=== PATIENT | male | born 1950 | race Caucasian/White ===

== ENCOUNTER → 2019-04-11 12:59 | Outpatient (CLI) | payer MEDICARE, SELFPAY ==
--- NOTE | ~2019-04-11 | XR_ITS ---
EXAMINATION: XR soft tissue neck DATE: 04/11/2019 13:42 INDICATION: Localized swelling, mass, and lump of the neck. TECHNIQUE: 2 views of the neck soft tissues were obtained. COMPARISON: None. FINDINGS: The adenoids, palatine tonsils, prevertebral soft tissues, epiglottis, and airway are torri l. There is no radiopaque foreign body. IMPRESSION: 1. Normal neck soft tissues. Reviewed, dictated and finalized at location A. AGE RECEIPT POSTER
== END ==
PROVIDERS: PCP Family Medicine; Visit Provider Family Medicine
DX: R22.1 Localized swelling, mass and lump, neck (principal); F17.290 Nicotine dependence, other tobacco product, uncomplicated
CPT/HCPCS: 70360

== ENCOUNTER → 2019-04-12 13:52 | Outpatient (CLI) | payer MEDICARE, SELFPAY ==
--- NOTE | ~2019-04-12 | US_ITS ---
EXAMINATION: US soft tissue head and neck EXAM DATE: 04/12/2019 14:15 INDICATION: Lump for one week. Now pain. TECHNIQUE: Multiple grayscale and Doppler images of the left submandibular region were obtained (by a technologist who performed the scan) and subsequently reviewed. There is no prior study for compari son. FINDINGS: At patient's left-sided submandibular palpable abnormality is a hypoechoic lobular masslike region me asuring 1.8 x 1.0 x 1.3 cm, which is nonspecific. Could be an enlarged lymph node. There are several small lymph nodes with expected fatty richard adjacent to this. Consider CT neck with contrast. IMPRESSION: 1. Submandibular mass, could be mildly enlarged lymph node; consider CT neck with contrast. Reviewed, dictated and finalized at location B. CTOR VOICE IMPRESSION: 1. Submandibular mass, could be mildly enlarged lymph node; consider CT neck w ith contrast.
== END ==
PROVIDERS: PCP Family Medicine; Visit Provider Family Medicine
DX: R22.1 Localized swelling, mass and lump, neck (principal)
CPT/HCPCS: 76536

== ENCOUNTER → 2019-04-18 10:09 | Outpatient (CLI) | payer MEDICARE, SELFPAY ==
--- NOTE | ~2019-04-18 | CT_ITS ---
EXAMINATION: CT soft tissue neck w con DATE: 04/18/2019 10:46 INDICATION: Neck mass. TECHNIQUE: Computed tomography (CT) of the neck was performed with 75 mL Omnipaque-350 intravenous co ntrast. Automated exposure control and iterative reconstruction technique were employed. The dose-timbo gth product was 429.76 mGy-cm. COMPARISON: Ultrasound 04/12/2019, chest CT 01/14/15 FINDINGS: There is mild emphysema. A calcified left lung nodule and calcified mediastinal lymph node are consistent with old granulomatous disease. There are nodules in the thyroid measuring up to 15 mm . There is a 1.4 x 0.9 cm mass anterior to the hyoid bone to the left of midline measuring soft tissu e attenuation, less than normal thyroid attenuation. There are no pathologically enlarged lymph nodes . There is moderate cervical spondylosis. IMPRESSION: 1. 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 2. Thyroid nodules. Consider thyroid ultrasound for risk stratification. Reviewed, dictated and finalized at location A. HANDISE FLOW TEAM LEADER
[2019-04-18 10:35] LABS: Blood Urea Nitrogen 17 mg/dL (8-26); Estimated Glomerular Filt Rate > 60
== END ==
PROVIDERS: PCP Family Medicine; Visit Provider Family Medicine
DX: R22.1 Localized swelling, mass and lump, neck (principal); E04.2 Nontoxic multinodular goiter
CPT/HCPCS: 70491; Q9967

== ENCOUNTER → 2019-05-01 14:20 | Outpatient (CLI) | payer MEDICARE, SELFPAY ==
--- NOTE | ~2019-05-01 | US_ITS ---
EXAMINATION: US thyroid EXAM DATE: 05/01/2019 15:01 INDICATION: Thyroid nodules. TECHNIQUE: Multiple grayscale and Doppler images of the thyroid were obtained (by a technologist who performed the scan) and subsequently reviewed. Individual nodules may be reported using TI-RADS syst em as designated by the 2017 ACR White Paper TI-RADS committee. Comparison is made to prior CT examin ation from 04/12/2019. FINDINGS: The right there are lobe measures 4.7 x 2.1 x 1.8 cm, the left measuring 4.3 x 1.6 x 1.5 cm. There is a nodule in the lower pole of the right thyroid lobe measuring 2.3 x 1.8 x 1.7 centimeters, predominantly solid (2 points), hypoechoic (2 points), wider than tall, smooth margin, without echog enic foci, category TR4 for this nodule. Correlation was made with CT neck from 04/12/2019, CT chest f rom 10/12/2016. Nodule is identified on the contrast-enhanced neck CT but difficult to be certain whet her or not this was present on the noncontrast chest CT. IMPRESSION: 1. Right thyroid lobe nodule large enough to consider ultrasound-guided biopsy. Reviewed, dictated and finalized at location A. LING MACHINE OPERATOR IMPRESSION: 1. Right thyroid lobe nodule large enough to consider ultrasound-guided biopsy .
== END ==
PROVIDERS: PCP Family Medicine; Visit Provider Family Medicine
DX: E04.1 Nontoxic single thyroid nodule (principal)
CPT/HCPCS: 76536

== ENCOUNTER 2019-05-09 12:56 | Outpatient (CLI) | payer MEDICARE, SELFPAY ==
--- NOTE | ~2019-05-09 | US_ITS ---
EXAMINATION: US FNA w image guidance DATE: 05/09/2019 14:12 INDICATION: Right thyroid nodule. TECHNIQUE: The procedure and its benefits, risks, and benefits were discussed with the patient. Risks specifical ly discussed included bleeding. The patient verbalized understanding of the risks and agreed to proce ed. The neck was prepped and draped in the usual sterile manner. 1% lidocaine was used for local ane sthesia. 5 passes were made with a 25G needle into the lesion. Appropriate needle location was docu mented with continuous sonographic guidance. There were no immediate complications. The patient unde rstood to call the ordering physician for results after a week and a half and verbalized that underst anding. FINDINGS: Grayscale ultrasound images demonstrate needles advanced into a 2.3 cm nodule in right thyroid lobe f or biopsy. IMPRESSION: 1. Ultrasound-guided fine needle aspiration of a right thyroid nodule. Reviewed, dictated and finalized at location A.
== END 2019-05-09 12:57 | disposition home or self-care (01) ==
LOC: ANHIMG 13:00
PROVIDERS: PCP Family Medicine; Visit Provider Family Medicine
DX: E04.1 Nontoxic single thyroid nodule (principal)
CPT/HCPCS: 10005; 88108; 88173; 88305

== ENCOUNTER → 2020-01-06 13:07 | Outpatient (CLI) | payer MEDICARE, SELFPAY ==
--- NOTE | ~2020-01-06 | CT_ITS ---
EXAMINATION:CT lung screening DATE: 01/06/2020 13:36 INDICATION: Personal history of tobacco dependence. Current smoker with 30 pack year history. TECHNIQUE: Computed tomography (CT) of the chest was performed without intravenous contrast. Automate d exposure control and iterative reconstruction technique were employed. The dose-length product (DLP ) was 217.31 mGy-cm. COMPARISON: Chest CT 10/12/2016 FINDINGS: There is mild emphysema. There is mild scarring in paraspinal right lower lobe. Calcified l eft lung nodules and calcified left hilar and mediastinal lymph nodes are consistent with old granulo matous disease. There are two 6 mm nodules at the minor fissure without change. No pleural effusion. The heart size is normal. There are coronary artery calcifications. No pericardial effusion. There is mild thoracic spondylosis. IMPRESSION: 1. Lung-RADS category 2: Benign appearance or behavior. Continue annual screening with noncontrast lo w-dose chest CT in 12 months. Reviewed, dictated and finalized at location B. INE OPERATORS IMPRESSION: 1. Lung-RADS category 2: Benign appearance or behavior. Continue annual screeni ng with noncontrast low-dose chest CT in 12 months.
== END ==
PROVIDERS: PCP Family Medicine; Visit Provider Physician Assistant
DX: Z12.2 Encounter for screening for malignant neoplasm of respiratory organs (principal); Z87.891 Personal history of nicotine dependence
CPT/HCPCS: G0297

== ENCOUNTER 2020-08-07 13:10 | Emergency (ER) | payer MEDICARE, SELFPAY ==
--- NOTE | ~2020-08-07 | XR_ITS ---
XR shoulder RT min 2V, XR humerus RT 08/07/2020 13:33 Indication: Right shoulder and arm pain after injury Procedure: 4 views right shoulder and 2 views right humerus Comparison: No prior studies for comparison. Findings: There are mild-moderate degenerative changes of the acromioclavicular and glenohumeral join ts. No fracture or traumatic malalignment. Surrounding osseous structures and soft tissues are unrema rkable. No focal soft tissue abnormality. No foreign bodies. Impression: 1: No acute fracture. 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 Reviewed, dictated and finalized at location B. Impression: 1: No acute fracture. 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 Impression: 1: No acute fracture. 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
[2020-08-07 13:17] VITALS: BP 145/78; PULSE 73; RESP 16; TEMP 36.6; O2SAT 100
--- NOTE | 2020-08-07 13:20 | ED.UPPEXIN ---
HPI - Extremity Injury (Upper) General Chief Complaint: Extremity Injury, Upper Stated Complaint: R ARM PAIN/SWELLING History of Present Illness HPI narrative: This is a 69-year-old male that attempted to lift up a lawnmower yesterday states that when he was lifted up and have the engine and and he felt the severe pain that started shooting down his right arm. Patient states last night he was unable to sleep so that woke him up but patient denies taking anything for symptoms Related Data Allergies Allergy/AdvReac Type Severity Reaction Status Date / Time amoxicillin Allergy Unknown Nausea Verified 04/23/20 13:54 Review of Systems Review of Systems: Narrative: CONSTITUTIONAL: Denies fever, chills, or sweats. EYES: Denies visual changes, redness, or discharge. ENT: Denies rhinorrhea, congestion, sore throat, or otalgia. CARDIOVASCULAR:Denies chest pain, palpitations, or edema. RESPIRATORY: Denies cough or dyspnea. GASTROINTESTINAL: Denies abdominal pain, nausea, vomiting, or diarrhea. GENITOURINARY: Denies dysuria or hematuria. SKIN:[Denies rash or itching. MUSCULOSKELETAL:Denies back pain, reports right arm joint pain, or myalgia. NEUROLOGIC: Denies headache, numbness, or weakness. PSYCHIATRIC:Denies anxiety or depression [facility] Past Medical History Medical History Hepatitis C antibody test negative (09/13/16) Surgical History Surgical History H/O adenoidectomy History of tonsillectomy Family History Family History Mother Hypertension Family history of elevated blood lipids Cerebrovascular accident Father Family history of Parkinson's disease Malignant neoplasm of prostate, Onset Age: 76 Social History Social History (Updated 04/23/20 @ 13:55 by Pham Grier CMA) Smoking packs per day: 1 Smoking cigarettes per day: 20.0 Smoking status: Current every day smoker Second hand tobacco smoke exposure: No Alcohol intake: current Drinks per week: 4 Substance use: never Substance use type: does not use Gender identity (if verbalized by the patient): Male Comments At time as signature, I have reviewed and agree with nursing past medical, social, surgical and family history. Please see nursing chart for further information. There is no relevant family history pertinent to the presenting complaint. Exam Narrative: Exam Narrative: GENERAL:Well-appearing, well-nourished, and in no acute distress. HEAD:Normocephalic, atraumatic. EYES: PERRLA and EOMI. ENT: Nares clear, no rhinorrhea or epistaxis. Mucous membranes moist. NECK: Supple. CHEST: Clear to auscultation. No respiratory distress. HEART: Regular rate and rhythm. No murmur heard. Normal peripheral pulses. ABDOMEN: Soft, nontender, nondistended, normal active bowel sounds. EXTREMITIES: Decreased range of motion pain with palpitation inability to lift more than 90 degrees due to pain rotation causes pain. No edema. No pain when held in place SKIN: Warm, dry, no rash. NEURO: No focal deficits. Alert and oriented x3. Course Vital Signs Vital signs: Vital Signs Temperature 97.8 F 08/07/20 13:17 Pulse Rate 73 08/07/20 13:17 Respiratory Rate 16 08/07/20 13:17 Blood Pressure 145/78 H 08/07/20 13:17 Pulse Oximetry 100 08/07/20 13:17 Temperature 97.8 F 08/07/20 13:17 Pulse Rate 73 08/07/20 13:17 Respiratory Rate 16 08/07/20 13:17 Blood Pressure 145/78 H 08/07/20 13:17 Pulse Oximetry 100 08/07/20 13:17 MDM - Extremity Injury (Upper) Differential Diagnosis Differential diagnosis: Likely dislocation of shoulder, fracture of humerus and fracture of clavicle Lab Data Attestation: I reviewed the patient's lab results. 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 Noted and educated shannon
== END 2020-08-07 14:28 | disposition home or self-care (01) ==
PROVIDERS: Emergency Provider Nurse Practitioner Family; PCP Family Medicine
DX: M19.011 Primary osteoarthritis, right shoulder (principal); M62.838 Other muscle spasm; S46.911A Strain of unspecified muscle, fascia and tendon at shoulder and upper arm level, right arm, initial encounter; X50.0XXA Overexertion from strenuous movement or load, initial encounter; F17.210 Nicotine dependence, cigarettes, uncomplicated
CPT/HCPCS: 73030; 73060; 99213; A4565; G0463

== ENCOUNTER → 2021-05-24 14:21 | Outpatient (CLI) | payer MEDICARE, SELFPAY ==
--- NOTE | ~2021-05-24 | CT_ITS ---
EXAMINATION:CT lung screening DATE: 05/24/2021 14:40 INDICATION: Personal history of tobacco dependence. Current smoker with 30 pack year history. TECHNIQUE: Computed tomography (CT) of the chest was performed without intravenous contrast. Automate d exposure control and iterative reconstruction technique were employed. The dose-length product (DLP ) was 137.29 mGy-cm. COMPARISON: Chest CT 01/06/2020 FINDINGS: There is mild emphysema. Calcified left lung nodules and calcified left hilar and mediastin al lymph nodes are consistent with old granulomatous disease. There is stable mild scarring at the mat ng apices. Again seen are 2 nodules at the minor fissure with the larger measuring 6 mm. No pleural e ffusion. The heart size is normal. There are coronary artery calcifications. There are calcifications of aortic valve. No pericardial effusion. There is mild thoracic spondylosis. IMPRESSION: 1. Lung-RADS category 2: Benign appearance or behavior. Continue annual screening with noncontrast lo w-dose chest CT in 12 months. Reviewed, dictated and finalized at location A. IMPRESSION: 1. Lung-RADS category 2: Benign appearance or behavior. Continue annual screeni with noncontrast low-dose chest CT in 12 months.
== END ==
PROVIDERS: PCP Physician Assistant; Visit Provider Physician Assistant
DX: Z12.2 Encounter for screening for malignant neoplasm of respiratory organs (principal); F17.210 Nicotine dependence, cigarettes, uncomplicated
CPT/HCPCS: 71271

== ENCOUNTER 2023-08-29 15:02 | Outpatient (CLI) | payer MEDICARE, SELFPAY ==
--- NOTE | ~2023-08-29 | CT_ITS ---
EXAMINATION: CT lung screening DATE: 08/29/2023 15:27 INDICATION: Z87.891 - Personal history of nicotine dependence TECHNIQUE: Computed tomography (CT) of the chest was performed without intravenous contrast. Addition al 3D reconstructions utilizing coronal maximum intensity projection (MIP) were performed. Automated exposure control and iterative reconstruction technique were employed. The dose-length product was 16 6.50 mGy-cm. COMPARISON: None FINDINGS: Mild emphysema. There are few small bilateral calcified pulmonary nodules which along with calcified left hilar and mediastinal lymph nodes and a few splenic calcific lesions all consistent with old gra nulomatous disease. No interval change in a couple 5-6 mm triangular intrafissural lymph nodes along the right minor fissure. Mild subpleural atelectasis/scarring at the posterior medial right lower lob e adjacent to several prominent thoracic endplate osteophytes consistent with bridging osteophytes at multiple levels consistent with diffuse idiopathic skeletal hyperostosis (DISH). No pneumonia, pulm onary edema or pleural effusion. Heart size is normal. Small amount of atherosclerotic coronary arter y calcification. No pericardial effusion. Thoracic aorta is normal in caliber. No pathologically enla rged thoracic lymphadenopathy. IMPRESSION: 1. Lung-RADS category 2: Benign appearance or behavior. Continue annual screening with noncontrast lo w-dose chest CT in 12 months. Reviewed, dictated and finalized at location B. IMPRESSION: 1. Lung-RADS category 2: Benign appearance or behavior. Continue annual screeni ng with noncontrast low-dose chest CT in 12 months.
== END 2023-08-29 15:03 | disposition home or self-care (01) ==
PROVIDERS: PCP Family Medicine; Visit Provider Nurse Practitioner
DX: Z12.2 Encounter for screening for malignant neoplasm of respiratory organs (principal); Z87.891 Personal history of nicotine dependence
CPT/HCPCS: 71271

== ENCOUNTER 2024-04-17 13:48 | Outpatient (CLI) | payer MEDICARE, SELFPAY ==
--- NOTE | ~2024-04-17 | US_ITS ---
EXAMINATION: US soft tissue head and neck DATE: 04/17/2024 13:59 INDICATION: Left neck lump. TECHNIQUE: Multiple grayscale and Doppler ultrasound images of the head and neck were obtained. COMPARISON: Neck CT 04/18/2019 FINDINGS: There is a normal left submandibular lymph node in the patient's area of concern. IMPRESSION: 1. No abnormal mass or lymphadenopathy in the patient's area of concern. Reviewed, dictated and finalized at location A. ES DIRECTOR
== END 2024-04-17 13:49 | disposition home or self-care (01) ==
LOC: GOSHIMG 13:49
PROVIDERS: PCP Nurse Practitioner; Visit Provider Nurse Practitioner
DX: R22.1 Localized swelling, mass and lump, neck (principal)
CPT/HCPCS: 76536

== ENCOUNTER 2024-05-21 00:46 | Day surgery (SDC) | payer MEDICARE, SELFPAY ==
[2024-05-13 10:52] VITALS: BMI 26.9
[2024-05-21 08:14] VITALS: BP 143/69; PULSE 73; RESP 20; TEMP 35.7; O2SAT 99; BMI 26.4
[2024-05-21] MEDS: LACTATED RINGERS 1,000 ML 150 ML IV CONT (08:23)
--- NOTE | 2024-05-21 08:55 | WPDANESEPPF ---
Anes - Initial Pre Proc Eval Procedure: Operation Date: 05/21/24 09:30 Proposed Procedures p Screening Colonoscopy - Glenn Salazar MD Date/Time: 05/21/24 08:55 Surgeon: Glenn Salazar MD Pre Op Diagnosis: Screening Patient Data Age: 73 Gender: M Height: 1.83 m Weight: 88.6 kg Last Vital Signs Temp 35.7 C L 05/21/24 08:14 Pulse 73 05/21/24 08:14 Resp 20 05/21/24 08:14 BP 143/69 H 05/21/24 08:14 Pulse Ox 99 05/21/24 08:14 O2 Del Method Room Air 05/21/24 08:14 Allergies Allergy/AdvReac Type Severity Reaction Status Date / Time amoxicillin Allergy Unknown Nausea Verified 05/21/24 08:13 Home Medications ?Medication ?Instructions ?Recorded ?Confirmed ?Type sildenafil 100 mg tablet 100 mg PO DAILY PRN sexual 04/17/23 05/13/24 Rx activity #20 tabs hydrochlorothiazide 25 mg tablet 25 mg PO DAILY #90 tabs 12/04/23 05/21/24 Rx lisinopril 40 mg tablet 40 mg PO DAILY #90 tabs 12/04/23 05/21/24 Rx atorvastatin 10 mg tablet See Rx Instructions .Route 12/11/23 05/21/24 Rx .COMPLEX #90 tabs omeprazole 20 mg capsule,delayed See Rx Instructions .Route 12/26/23 05/21/24 Rx release .COMPLEX #90 caps amlodipine 5 mg tablet 5 mg PO DAILY #90 tabs 02/19/24 05/21/24 Rx metoprolol succinate 50 mg See Rx Instructions .Route 03/11/24 05/21/24 Rx tablet,extended release 24 hr .COMPLEX #90 tabs escitalopram oxalate 20 mg tablet See Rx Instructions .Route 04/16/24 05/21/24 Rx .COMPLEX #90 tabs cyclobenzaprine 10 mg tablet 10 mg PO DAILY PRN muscle spasm 04/17/24 05/21/24 Rx #90 tabs diclofenac potassium 50 mg tablet See Rx Instructions .Route 05/13/24 05/21/24 Rx .COMPLEX #180 tabs Patient hx anesthesia problems: none Family hx anesthesia problems: none Results Review: All pre-operative results and documents have been reviewed as part of the pre-operative evaluation. [facility] Past Medical History Medical History (Updated 05/21/24 @ 08:56 by Natanael Carlos MD) Mixed hyperlipidemia Type 2 diabetes mellitus Hepatitis C antibody test negative (09/13/16) Surgical History Surgical History History of tonsillectomy H/O adenoidectomy Family History Family History Mother Hypertension Family history of elevated blood lipids Cerebrovascular accident Father Family history of Parkinson's disease Malignant neoplasm of prostate, Onset Age: 76 Social History Social History Smoking packs per day: 1 Smoking cigarettes per day: 20.0 Smoking status: Current every day smoker Tobacco type: cigarettes Second hand tobacco smoke exposure: No Alcohol intake: current Drinks per week: 4 Alcohol use details: 2 glasses of wine or 3 beers nightly Substance use: current Substance use type: marijuana Lack of Transportation: No Lack of Food: Never True Current Housing: I Have Housing Concerned About Future Housing: No Difficulty Paying Gas/Electric Bills: No Difficulty Paying for Meds: No Currently Unemployed: No Education: High School Diploma/GED Difficulty w/ Childcare or Family Care: No Living arrangements: with family Gender identity (if verbalized by the patient): Male Spiritual care concerns: No Anes - Eval Final PreProcedure Day of Procedure 05/21/24 08:55 Patient weight: overweight Heart: regular rate and rhythm Lungs: clear to auscultation Airway: Mallampati scale class II Neurological: alert and oriented Last oral intake: >/= 8 hours ASA classification: III Emergent: no Anesthetic plan: proceed Anesthesia type and monitoring: general GIVS and standard monitoring Results Review: All pre-operative results and documents have been reviewed as part of the pre-operative evaluation. Informed Consent: The patient's anesthetic plan and its attendant risks and benefits were discussed with the patient/family/POA. Questions were solicited and answers provided to the satisfaction of the patient/family/POA.
[2024-05-21 09:08] VITALS: BP 120/74; PULSE 60; RESP 14; O2SAT 99
--- NOTE | 2024-05-21 09:23 | PM.IMHP ---
H&P: HPI History of Present Illness Date/Time: 05/21/24 09:23 Chief Complaint: screening colonoscopy Narrative: This is the patient's first colonoscopy after 10 years.. There are no GI symptoms and there is no family history of colorectal cancer. Review of Systems Review of Systems: All systems reviewed & are unremarkable except as noted in HPI and below PMFSH Past Medical History Medical History (Updated 05/21/24 @ 08:56 by Natanael Carlos MD) Mixed hyperlipidemia Type 2 diabetes mellitus Hepatitis C antibody test negative (09/13/16) Surgical History Surgical History History of tonsillectomy H/O adenoidectomy Family History Family History Mother Hypertension Family history of elevated blood lipids Cerebrovascular accident Father Family history of Parkinson's disease Malignant neoplasm of prostate, Onset Age: 76 Social History Social History Smoking packs per day: 1 Smoking cigarettes per day: 20.0 Smoking status: Current every day smoker Tobacco type: cigarettes Second hand tobacco smoke exposure: No Alcohol intake: current Drinks per week: 4 Alcohol use details: 2 glasses of wine or 3 beers nightly Substance use: current Substance use type: marijuana Lack of Transportation: No Lack of Food: Never True Current Housing: I Have Housing Concerned About Future Housing: No Difficulty Paying Gas/Electric Bills: No Difficulty Paying for Meds: No Currently Unemployed: No Education: High School Diploma/GED Difficulty w/ Childcare or Family Care: No Living arrangements: with family Gender identity (if verbalized by the patient): Male Spiritual care concerns: No Meds Home Medications and Allergies Home Medications ?Medication ?Instructions ?Recorded ?Confirmed ?Type sildenafil 100 mg tablet 100 mg PO DAILY PRN sexual 04/17/23 05/13/24 Rx activity #20 tabs hydrochlorothiazide 25 mg tablet 25 mg PO DAILY #90 tabs 12/04/23 05/21/24 Rx lisinopril 40 mg tablet 40 mg PO DAILY #90 tabs 12/04/23 05/21/24 Rx atorvastatin 10 mg tablet See Rx Instructions .Route 12/11/23 05/21/24 Rx .COMPLEX #90 tabs omeprazole 20 mg capsule,delayed See Rx Instructions .Route 12/26/23 05/21/24 Rx release .COMPLEX #90 caps amlodipine 5 mg tablet 5 mg PO DAILY #90 tabs 02/19/24 05/21/24 Rx metoprolol succinate 50 mg See Rx Instructions .Route 03/11/24 05/21/24 Rx tablet,extended release 24 hr .COMPLEX #90 tabs escitalopram oxalate 20 mg tablet See Rx Instructions .Route 04/16/24 05/21/24 Rx .COMPLEX #90 tabs cyclobenzaprine 10 mg tablet 10 mg PO DAILY PRN muscle spasm 04/17/24 05/21/24 Rx #90 tabs diclofenac potassium 50 mg tablet See Rx Instructions .Route 05/13/24 05/21/24 Rx .COMPLEX #180 tabs Allergies Allergy/AdvReac Type Severity Reaction Status Date / Time amoxicillin Allergy Unknown Nausea Verified 05/21/24 08:13 Vital Signs Vital Signs - 24 hr 05/21/24 08:14 Temperature 96.2 F L Pulse Rate 73 Respiratory Rate 20 Blood Pressure 143/69 H Pulse Oximetry 99 Oxygen Delivery Room Air Exam Const: General: cooperative and healthy appearing Resp: Effort & Inspection: normal respiratory effort and able to speak in complete sentences Auscultation: clear to auscultation bilaterally Cardio: Rate: regular rate Rhythm: regular rhythm GI: Inspection: normal to inspection GI Palp: No No hepatosplenomegaly present Auscultation: normal bowel sounds Rectal Exam: deferred Skin: General skin exam: normal color Psych: Appearance: grossly normal Mental Status: mental status grossly normal Assessment and Plan Assessment and plan (1) Screening for colon cancer: Code(s): Z12.11 - Encounter for screening for malignant neoplasm of colon Status: Acute Assessment and Plan: The patient is deemed a good candidate for the procedure. Consent signed. Will proceed.
[2024-05-21 09:48] VITALS: BP 102/52; PULSE 55; RESP 15; O2SAT 96
[2024-05-21 09:58] VITALS: BP 92/55; PULSE 60; RESP 13; O2SAT 96
== END 2024-05-21 10:19 | disposition home or self-care (01) ==
PROVIDERS: PCP Nurse Practitioner; Referring Provider Nurse Practitioner; Visit Provider Internal Medicine Gastroenterology
PROC: 0DJD8ZZ Inspection of Lower Intestinal Tract, Via Natural or Artificial Opening Endoscopic (ICD-10-PCS; CPT 45378; principal; 2024-05-21 09:30)
DX: Z12.11 Encounter for screening for malignant neoplasm of colon (principal); E78.2 Mixed hyperlipidemia; E11.9 Type 2 diabetes mellitus without complications; F17.210 Nicotine dependence, cigarettes, uncomplicated; F12.90 Cannabis use, unspecified, uncomplicated; Z98.890 Other specified postprocedural states; Z80.42 Family history of malignant neoplasm of prostate; Z82.49 Family history of ischemic heart disease and other diseases of the circulatory system
CPT/HCPCS: G0105; J2003; J2704; J7120

== ENCOUNTER 2024-07-12 13:04 | Outpatient (CLI) | payer MEDICARE, SELFPAY ==
--- NOTE | ~2024-07-12 | US_ITS ---
EXAMINATION: US carotid duplex BI DATE: 07/12/2024 13:38 INDICATION: Dizziness and giddiness. Vertigo. TECHNIQUE: Grayscale, color Doppler, and pulsed Doppler images of the cervical carotid arteries were obtained. The degree of vessel stenosis is placed in one of the following categories: normal, <50%, 5 0-69%, >=70% but less than near-occlusion, near-occlusion, or total occlusion. Note that percent sten osis relative to normal distal artery lumen diameter is indirectly measured from velocity measurement s as described by Jorje, et al. Radiology 2003; 229:340-346. COMPARISON: None. FINDINGS: RIGHT: The right common carotid artery (CCA) peak systolic velocity (PSV) is 53 cm/s. The right internal car otid artery (ICA) PSV is 88 cm/s. The right ICA end-diastolic velocity (EDV) is 24 cm/s. The right IC A/CCA PSV ratio is 1.7. Grayscale and color Doppler images yield an estimate of <50% diameter reducti on from plaque in the ICA. The external carotid artery (ECA) PSV is 70 cm/s. There is antegrade flow in the right vertebral artery. LEFT: The left CCA PSV is 67 cm/s. The left ICA PSV is 95 cm/s. The left ICA EDV is 24 cm/s. The left ICA/C CA PSV ratio is 1.4. Grayscale and color Doppler images yield an estimate of <50% diameter reduction from plaque in the ICA. The ECA PSV is 111 cm/s. There is antegrade flow in the left vertebral artery . IMPRESSION: 1. <50% stenosis in the right internal carotid artery. 2. <50% stenosis in the left internal carotid artery. Reviewed, dictated and finalized at location A.
== END 2024-07-12 13:05 | disposition home or self-care (01) ==
PROVIDERS: PCP Family Medicine; Visit Provider Nurse Practitioner
DX: I65.23 Occlusion and stenosis of bilateral carotid arteries (principal)
CPT/HCPCS: 93880

== ENCOUNTER 2024-08-09 14:30 | Outpatient (CLI) | payer MEDICARE, SELFPAY ==
--- NOTE | ~2024-08-09 | XR_ITS ---
XR shoulder RT min 2V 08/09/2024 14:43 Indication: Right shoulder pain Procedure: 4 views right shoulder Comparison: 08/07/2020 Findings: There is moderate polyarticular osteoarthritis of the right shoulder. No fracture, subluxat ion or dislocation. No soft tissue abnormality. No foreign bodies. Impression: 1: Moderate polyarticular osteoarthritis of the right shoulder. Reviewed, dictated and finalized at location B. Impression: 1: Moderate polyarticular osteoarthritis of the right shoulder.
== END 2024-08-09 14:31 | disposition home or self-care (01) ==
LOC: MICIMG 14:31
PROVIDERS: PCP Family Medicine; Visit Provider Nurse Practitioner
DX: M19.011 Primary osteoarthritis, right shoulder (principal)
CPT/HCPCS: 73030

== ENCOUNTER 2024-10-22 08:45 | Outpatient (CLI) | payer MEDICARE, SELFPAY ==
--- NOTE | ~2024-10-22 | CT_ITS ---
EXAMINATION: CT lung screening DATE: 10/22/2024 09:14 INDICATION: Personal history of nicotine dependence TECHNIQUE: Computed tomography (CT) of the chest was performed without intravenous contrast. The dose-length product was 150.22 mGy-cm. COMPARISON: CT dated 08/29/2023 FINDINGS: No thoracic lymphadenopathy. Mild atherosclerosis of the aorta and coronary arteries. No significant pleural or pericardial effusion. Heart size normal. No significant thoracic lymphadenopathy. There are calcified granulomas of the spleen. No endobronchial lesions. Stable 5 mm fissural lymph node on the right. Calcified granulomas left upper lobe. 2 mm nodule superior segment left lower lobe, likely benign. No focal airspace consolidation. No endobronchial lesion. Mild emphysema. IMPRESSION: 1. Lung-RADS category 2: Benign appearance or behavior. Continue annual screening with noncontrast low-dose chest CT in 12 months. Reviewed, dictated and finalized at location O. IMPRESSION: 1. Lung-RADS category 2: Benign appearance or behavior. Continue annual screeni ng with noncontrast low-dose chest CT in 12 months.
== END 2024-10-22 08:46 | disposition home or self-care (01) ==
PROVIDERS: PCP Family Medicine; Visit Provider Nurse Practitioner
DX: Z12.2 Encounter for screening for malignant neoplasm of respiratory organs (principal); Z87.891 Personal history of nicotine dependence
CPT/HCPCS: 71271

== ENCOUNTER 2024-12-27 14:25 | Emergency (ER) | payer MEDICARE, SELFPAY ==
[2024-12-27 14:46] VITALS: BP 142/68; PULSE 67; RESP 18; TEMP 36.9; O2SAT 100
== END 2024-12-27 14:46 | disposition left against medical advice (07) ==
PROVIDERS: PCP Family Medicine
DX: Z53.21 Procedure and treatment not carried out due to patient leaving prior to being seen by health care provider (principal)
CPT/HCPCS: 99199

== ENCOUNTER 2024-12-27 15:02 | Emergency (ER) | payer MEDICARE, SELFPAY ==
--- NOTE | ~2024-12-27 | XR_ITS ---
EXAMINATION: XR knee LT 3V DATE: 12/27/2024 18:13 INDICATION: Left knee pain. Nonweightbearing. TECHNIQUE: Anteroposterior, oblique and crosstable lateral views of the left knee were obtained COMPARISON: None. FINDINGS: Alignment is normal. No fracture. Joint spaces appear relatively preserved on nonweightbearing imaging. Tiny superior patellar marginal osteophyte and small subarticular lucency suggesting subarticular cystlike change along the patellar apical ridge consistent with mild osteoarthritis and possible focal high-grade chondromalacia along the apical ridge. Prominent enthesophytes at the patellar and anterior tibial insertions of the quadriceps and patellar tendons. No joint effusion/layering lipohemarthrosis. Soft tissues are unremarkable. IMPRESSION: 1. No left knee joint effusion or acute osseous abnormality. 2. Mild patellofemoral osteoarthritis. Reviewed, dictated and finalized at location A.
[2024-12-27 15:26] VITALS: BP 128/68; PULSE 65; RESP 16; TEMP 36.1; O2SAT 98
--- NOTE | 2024-12-27 18:32 | ED_ITS ---
HPI - Extremity Problem General Chief complaint: Extremity Problem,Nontraumatic Stated complaint: Injury of Left Knee Time Seen by Provider: 12/27/24 18:08 Source: patient Mode of arrival: ambulatory Limitations: no limitations History of Present Illness HPI Narrative: Patient is a 74-year-old male who presents the ED with report of left knee pain. Patient reports over the last few days, he has been having intermittent pain throughout his left knee, worse with movements/standing up from sitting position. Today while getting out of the car, patient put most of his weight on his left foot and felt a pop behind his left knee. Complains of pain to his left knee, difficulty bearing weight. Has not taken anything for pain. Denies any other injury. Denies numbness. Related Data Allergies Allergy/AdvReac Type Severity Reaction Status Date / Time amoxicillin AdvReac Intermediate Nausea and Verified 12/27/24 14:33 Vomiting Review of Systems Review of Systems: All systems reviewed & are unremarkable except as noted in HPI. All systems reviewed & are unremarkable except as noted in HPI and below PMFSH Past Medical History Medical History Type 2 diabetes mellitus Mixed hyperlipidemia Hepatitis C antibody test negative (09/13/16) Surgical History Surgical History History of tonsillectomy H/O adenoidectomy Family History Family History Mother Hypertension Family history of elevated blood lipids Cerebrovascular accident Father Family history of Parkinson's disease Malignant neoplasm of prostate, Onset Age: 76 Social History Social History Smoking packs per day: 1 Smoking cigarettes per day: 20.0 Smoking status: Current every day smoker Tobacco type: cigarettes Second hand tobacco smoke exposure: No Alcohol intake: current Drinks per week: 4 Alcohol use details: 2 glasses of wine or 3 beers nightly Substance use: current Substance use type: marijuana Lack of Transportation: No Lack of Food: Never True Current Housing: I Have Housing Concerned About Future Housing: No Difficulty Paying Gas/Electric Bills: No Difficulty Paying for Meds: No Currently Unemployed: No Education: High School Diploma/GED Difficulty w/ Childcare or Family Care: No Living arrangements: with family Gender identity (if verbalized by the patient): Male Spiritual care concerns: No Exam Narrative: GENERAL: Well appearing, well-nourished, non-toxic, in no acute distress. HEAD: Normocephalic, atraumatic. RESPIRATORY: Airway patent, respirations nonlabored. CARDIOVASCULAR: Regular rate and rhythm. Pedal pulses intact MUSCULOSKELETAL: Moves all extremities. No gross deformities. Limited range of motion of left knee flexion/extension due to pain. Tenderness to palpation throughout medial left knee joint spaces and posterior left knee/popliteal region. No swelling throughout lower leg. Sensation intact. No tenderness throughout ankle. SKIN: Warm, dry, normal color. NEURO: A&O X3. Speech clear. No ataxic movements. PSYCHIATRIC: Appropriate mood and affect. Normal interaction. Course Vital Signs Vital signs: Vital Signs Temperature 96.9 F L 12/27/24 15:26 Pulse Rate 65 12/27/24 15:26 Respiratory Rate 16 12/27/24 15:26 Blood Pressure 128/68 12/27/24 15:26 Pulse Oximetry 98 12/27/24 15:26 Oxygen Delivery Room Air 12/27/24 15:26 Temperature 96.9 F L 12/27/24 15:26 Pulse Rate 65 12/27/24 15:26 Respiratory Rate 16 12/27/24 15:26 Blood Pressure 128/68 12/27/24 15:26 Pulse Oximetry 98 12/27/24 15:26 Oxygen Delivery Room Air 12/27/24 15:26 MDM - Extremity (Nontraumatic) MDM Narrative Medical decision making narrative: Patient?s injury is consistent with musculoskeletal etiology. No signs of neurologic or vascular compromise on physical examination. Compartments are soft without signs of compartment syndrome. XR of left knee with osteoarthritis changes, but no acute fracture or joint effusion. Pain is consistent with internal derangement in the knee, likely ligamentous or meniscal injury. Discussed possibility of such and continued management. Patient given Julio bandage and crutches. Will be referred to orthopedics for further eval. Discussed rice therapy, strict return precautions. Will prescribe short course of pain medication for home. Patient in agreement with plan. Discharged in stable condition. Medical Records Attestation: I reviewed the patient's medical records. Imaging Data Attestation: I personally reviewed and interpreted this imaging study as follows: Radiologist's impression: ITS Impressions Knee X-Ray 12/27/24 18:53 IMPRESSION: 1. No left knee joint effusion or acute osseous abnormality. 2. Mild patellofemoral osteoarthritis. Discharge Plan Discharge Clinical Impression: Internal derangement of left knee Patient Disposition: Home Condition: Stable Instructions: Antibiotic Form, Knee Sprain (ED), P.R.I.C.E. Treatment (ED) Additional Instructions: Your x-ray did not show any evidence of fracture. It is very possible you may have injured a ligament or meniscus of your knee. Recommend follow-up with orth opedics for further evaluation as needed. Call office on Monday to make appointment. Recommend frequent icing to knee, elevation of leg whenever possible, rest. Utilize Julio bandage for compression and support. Recommend Tylenol/ibuprofen as needed for pain. [place] as needed for more severe pain. Return to the ED if you experience worsening or severe pain/swelling, recurrent fall or injury, numbness, or any other symptoms of concern. Patient Language: Amharic Prescriptions: New hydrocodone-acetaminophen 5-325 mg tablet 1 tablet PO Q6H PRN (Reason: pain) Qty: 7 0RF No Action sildenafil 100 mg tablet 100 mg PO DAILY PRN (Reason: sexual activity) Qty: 20 2RF Rx Instructions: administer 30 minutes to 4 hours before activity metformin 500 mg tablet 500 mg PO DAILY Qty: 90 1RF metoprolol succinate 50 mg tablet extended release 24 hr See Rx Instructions .ROUTE .COMPLEX Qty: 90 1RF Dose Instruction: Take 1/2 (one-half) tablet by mouth once daily Rx Instructions: Take 1/2 (one-half) tablet by mouth once daily escitalopram oxalate 20 mg tablet See Rx Instructions .ROUTE .COMPLEX Qty: 90 1RF Dose Instruction: Take 1 tablet by mouth once daily Rx Instructions: Take 1 tablet by mouth once daily diclofenac potassium 50 mg tablet See Rx Instructions .ROUTE .COMPLEX Qty: 180 1RF Dose Instruction: Take 1 tablet by mouth twice daily Rx Instructions: Take 1 tablet by mouth twice daily amlodipine 5 mg tablet 5 mg PO DAILY Qty: 90 1RF omeprazole 20 mg capsule,delayed release(DR/EC) See Rx Instructions .ROUTE .COMPLEX Qty: 90 1RF Dose Instruction: Take 1 capsule by mouth once daily Rx Instructions: Take 1 capsule by mouth once daily atorvastatin 10 mg tablet See Rx Instructions .ROUTE .COMPLEX Qty: 90 1RF Dose Instruction: TAKE 1 TABLET DAILY Rx Instructions: TAKE 1 TABLET DAILY hydrochlorothiazide 25 mg tablet See Rx Instructions .ROUTE .COMPLEX Qty: 90 1RF Dose Instruction: Take 1 tablet by mouth once daily Rx Instructions: Take 1 tablet by mouth once daily lisinopril 40 mg tablet See Rx Instructions .ROUTE .COMPLEX Qty: 90 1RF Dose Instruction: Take 1 tablet by mouth once daily Rx Instructions: Take 1 tablet by mouth once daily Follow-up/Referrals: René Oconnor MD [Physician, Orthopedics] Referral Note: ORTHOPEDICS Kika Mandujano DO [Primary Care Provider, [facility]] Time of Disposition: 19:16
[2024-12-27] MEDS: HYDROcodone/acetaminophen (*CRX) 5-325 MG TABLET 1 TAB PO (19:23)
[2024-12-27] MEDS: KETOROLAC 30 MG/ML VIAL (*BKC) IM (19:23)
== END 2024-12-27 19:38 | disposition home or self-care (01) ==
PROVIDERS: Emergency Provider Physician Assistant; PCP Family Medicine
DX: M23.92 Unspecified internal derangement of left knee (principal); S89.92XA Unspecified injury of left lower leg, initial encounter; E11.9 Type 2 diabetes mellitus without complications; F17.210 Nicotine dependence, cigarettes, uncomplicated; M17.12 Unilateral primary osteoarthritis, left knee; Z79.84 Long term (current) use of oral hypoglycemic drugs; Z79.899 Other long term (current) drug therapy; X50.9XXA Other and unspecified overexertion or strenuous movements or postures, initial encounter
CPT/HCPCS: 73562; 96372; 99283; A9270; J1885

== ENCOUNTER 2025-01-08 09:44 | Outpatient (CLI) | payer MEDICARE, SELFPAY ==
--- NOTE | 2025-02-03 18:17 | WPDSLEEPSTUD ---
Sleep Study Date of Study: 01/08/25 Ordering Provider: Kika Mandujano DO Interpreting Physician: Angelia Banuelos MD Sleep Study Type: Polysomnogram Height: 1.83 m Weight: 91.172 kg Body Mass Index: 27.2 Neck Circumference (inches): 16 [place]: 10 Reason for Sleep Study Hypersomnolence, loud snoring, tossing and turning, waking during the night Sleep History Eduard Milan is a 74-year-old man with hypersomnolence. He has diabetes, indigestion, occasional diarrhea, and seasonal allergies. He occasionally awakens from sleep feeling short of breath. He rarely wakes at night with heartburn, belching or coughing.??He constantly snores, constantly snores loudly enough that others complain. He occasionally has trouble sleeping when he has a cold. He occasionally wakes up gasping for breath during the night. He frequently has breathing problems at night. He occasionally sweats excessively at night. He rarely notices his heart pounding or beating irregularly during the night. He occasionally falls asleep during the day. He however never falls asleep involuntarily, never falls asleep while driving. He experiences loss of muscle tone with strong emotion. He never never has daytime difficulty at work due to excessive sleepiness. He never feels paralyzed on waking or falling asleep. He never experiences vivid dreams upon waking or falling asleep. He never feels afraid of going to sleep. He never has nightmares. He never recalls his dreams. He occasionally has thoughts racing through his mind. He never feels sad or depressed. He rarely feels anxiety. He rarely notices parts of his body jerk. He rarely kicks during the night. He never feels crawling or aching feelings in his legs. He occasionally feels leg pain at night. He rarely has morning jaw pain, rarely grinds his teeth at night. He occasionally feels bothered by pain during the day, frequently awakened by pain during the night. He frequently wakes up feeling stiff in the morning, and he occasionally wakes feeling sore or achy. He rarely awakens with pain in his neck, spine, or joints. He reports no change in his weight over the last 12 months. Normal bedtime is around 2:00 a.m., falling asleep quickly, waking 3-4 times at night to urinate then returns to sleep easily. He wakes between 930 and 10:00 a.m.. He maintains the same schedule on weekends. He estimates getting between 6 and a nap to 7-1/2 hours of sleep nightly. He lives with his daughter who has Down syndrome. He takes naps in the afternoon or evening. A short nap lasting 10-15 minutes may be refreshing. Habits:??Tobacco: 1.25 packs per day cigarettes Caffeine: 3-4 cups of coffee per day Alcohol: 2-3 beers per day Recreational substances: He uses marijuana. [facility] Past Medical History Medical History (Updated 02/05/25 @ 20:44 by Angelia Banuelos MD) Arthritis Allergic rhinitis, cause unspecified Type 2 diabetes mellitus Mixed hyperlipidemia Hepatitis C antibody test negative (09/13/16) Surgical History Surgical History History of tonsillectomy H/O adenoidectomy Family History Family History Mother Hypertension Family history of elevated blood lipids Cerebrovascular accident Father Family history of Parkinson's disease Malignant neoplasm of prostate, Onset Age: 76 Social History Social History Smoking packs per day: 1 Smoking cigarettes per day: 20.0 Smoking status: Current every day smoker Tobacco type: cigarettes Second hand tobacco smoke exposure: No Alcohol intake: current Drinks per week: 4 Alcohol use details: 2 glasses of wine or 3 beers nightly Substance use: current Substance use type: marijuana Lack of Transportation: No Lack of Food: Never True Current Housing: I Have Housing Concerned About Future Housing: No Difficulty Paying Gas/Electric Bills: No Difficulty Paying for Meds: No Currently Unemployed: No Education: High School Diploma/GED Difficulty w/ Childcare or Family Care: No Living arrangements: with family Gender identity (if verbalized by the patient): Male Spiritual care concerns: No Medications Home Medications ?Medication ?Instructions ?Recorded ?Confirmed ?Type sildenafil 100 mg tablet 100 mg PO DAILY PRN sexual 04/17/23 01/24/25 Rx activity #20 tabs metoprolol succinate 50 mg See Rx Instructions .Route 03/11/24 01/24/25 Rx tablet,extended release 24 hr .COMPLEX #90 tabs amlodipine 5 mg tablet 5 mg PO DAILY #90 tabs 08/15/24 01/24/25 Rx atorvastatin 10 mg tablet See Rx Instructions .Route 11/25/24 01/24/25 Rx .COMPLEX #90 tabs hydrochlorothiazide 25 mg tablet See Rx Instructions .Route 12/04/24 01/24/25 Rx .COMPLEX #90 tabs lisinopril 40 mg tablet See Rx Instructions .Route 12/04/24 01/24/25 Rx .COMPLEX #90 tabs escitalopram oxalate 20 mg tablet See Rx Instructions .Route 01/10/25 01/24/25 Rx .COMPLEX #90 tabs prednisone 20 mg tablet 40 mg (2 x 20 mg) PO DAILY #14 tabs 01/24/25 01/24/25 Rx diclofenac potassium 50 mg tablet See Rx Instructions .Route 02/03/25 Rx .COMPLEX #180 tabs Sleep Procedure A full night polysomnogram using the ugichem multi-channel system recorded the standard physiologic parameters including EEG, EOG, submentalis EMG, anterior tibialis EMG, EKG, body position, nasal and oral airflow using nasal pressure sensor and thermistor. Respiratory parameters of chest and abdominal movements were recorded with Respiratory Inductance Plethysmography belts. Oxygen saturation was recorded by pulse oximetry. Video monitoring was also performed. Sleep stages, periodic limb movements, and EEG arousals were scored in 30 second epochs according to the criteria of the AASM Scoring Manual. The Apnea-Hypopnea Index was calculated using CMS guidelines for definition of hypopnea while scoring respiratory events. Sleep Architecture The total recording time was 419.0 minutes. The total sleep time was 266.0 minutes. Sleep latency was 61.2 minutes. There was no REM. Sleep efficiency was 63.5%. The patient had 65 awakenings for an awakening index of 14.7. Wake after sleep onset time was 91.0 minutes. The patient spent 75.5 minutes, 28.4% of total sleep time in Stage N1. The patient spent 176.5 minutes, 66.4% in Stage N2. The patient spent 14.0 minutes, 5.3% in Stage N3. The patient spent no time in Stage REM sleep. Respiratory Analysis The patient had 79 hypopneas, 36 obstructive apneas, no mixed apneas, and no central apneas for an overall Apnea Hypopnea Index of 25.7. There was no REM, therefore no REM AHI. The NREM Apnea Hypopnea Index was 25.7. The patient had a Central Apnea Hypopnea Index of 0. The supine apnea-hypopnea index was 40, the nonsupine apnea-hypopnea index was 24.7. There were no Respiratory Effort Related Arousals. The Respiratory Disturbance Index is 25.7 events per hour. There was no evidence of Denny-Graham Respirations. Arousals There were 135 total arousals for an arousal index of 30.5. There were 101 spontaneous arousals for an index of 22.8. There were 10 arousals due to respiratory events for an index of 2.3. There were 15 arousals due to periodic limb movements for an index of 3.4. There were 11 arousals due to isolated limb movements for an index of 2.5. Periodic Limb Movements The patient had 49 isolated limb movements with an index of 11.1. The patient had 143 periodic limb movements with an index of 32.3. Patient had a total of 192 limb movements with a total limb movement index of 43.3. Oximetry Data The patient had an average oxygen saturation of 92.2% in sleep with a minimum oxygen saturation of 85% and a maximum oxygen saturation of 98%. The patient had 181 oxygen desaturations that were 4% or greater resulting in an Oxygen Desaturation Index of 40.8. The patient spent 10.9 minutes, 2.6% of total sleep time with an oxygen saturation below 88%. Snoring Profile Snoring was mild. Cardiac Profile The EKG showed normal sinus rhythm, average pulse rate of 62.7 bpm with a minimum pulse of rate of 51 bpm and a maximum pulse rate of 88 bpm. No arrhythmias noted. EEG Profile No evidence of seizures. Alpha intrusion is present. Assessment and Plan Assessment and Plan (1) Obstructive sleep apnea: Code(s): G47.33 - Obstructive sleep apnea (adult) (pediatric) Status: Acute Assessment and Plan: This basic nocturnal polysomnogram on 01/08/2025 shows moderate obstructive sleep apnea with an apnea-hypopnea index of 25.7, desaturation 85%, 10.9 minutes spent below 88% and mild snoring. This overnight study likely underestimates the severity of his sleep disordered breathing. He had low sleep efficiency of 63.5% in the long sleep latency of 61.2 minutes. There was no REM. Sleep was fragmented with constant shifts between stage wake stage I and stage II. He had constant leg movements. Some of his problem with sleep is due to poor sleep hygiene, going to bed extremely late and waking up too early, self-induced sleep restriction. He needs to have his obstructive sleep apnea treated. Given the severity of his condition and lack of REM, I recommend a full night CPAP titration in the sleep lab with a sleep aid available to use, if needed, to initiate and maintain sleep. He is strongly encouraged not to nap on the day of the study. Appropriate sleep aids to consider include Ambien 5 or 10 mg, or Lunesta 2-3 mg. The patient had alpha intrusion noted during this basic polysomnogram. Alpha intrusion can be seen in various conditions conditions including mood disorders, narcotic dependence, chronic fatigue syndrome, and chronic pain syndrome. Alpha intrusion can be associated with non-restorative sleep and daytime fatigue. Treating the underlying sleep apnea is important to minimize the impact of alpha intrusion on daytime functioning. The patient should maintain a regular sleep schedule, limit caffeine and alcohol especially before bed and have regular physical activity but not to close before bedtime. Practices such as yoga, deep breathing or meditation can promote relaxation and potentially may reduce alpha intrusion. (2) PLMD (periodic limb movement disorder): Code(s): G47.61 - Periodic limb movement disorder Status: Acute Assessment and Plan: His periodic limb movement index was 32.3 and his overall limb movement index was 43.3. The limb movement arousal index was 5.9 with less than 20% of the limb movements causing arousals. Some of his lifestyle changes may be contributing to his fragmented sleep including tobacco use, caffeine and alcohol. He also indicates that he uses recreational substance. Chronic use of marijuana can fragment sleep. Nicotine, caffeine and alcohol can disrupt sleep. Treating sleep apnea can improve limb movements. I suggest checking a ferritin level to exclude iron deficiency anemia as a contributing factor. Ferritin should be 75 ng/mL or greater. If ferritin is below this, iron supplementation should be given to achieve ferritin of 75 ng/mL. There are nonpharmacologic methods to treat limb movements including daily exercise, stretching calf muscles before bed, avoiding excessive amounts of caffeine and alcohol, vitamin B supplementation, magnesium lotion massaged into legs before bed, and use of a weighted blanket. Pharmacologic therapy is very effective for restless legs syndrome and limb movements during sleep and may include [id number] voltage-gated calcium channel ligands such as gabapentin which is preferable to dopaminergic agents which can have augmentation. Data The data obtained during this sleep study is adequate for interpretation. Certification This sleep study has been reviewed by a board certified sleep medicine physician.
[2025-02-05 20:02] VITALS: BMI 27.2
== END 2025-01-09 07:15 | disposition home or self-care (01) ==
PROVIDERS: PCP Family Medicine; Visit Provider Family Medicine
DX: G47.33 Obstructive sleep apnea (adult) (pediatric) (principal); G47.61 Periodic limb movement disorder; G47.10 Hypersomnia, unspecified
CPT/HCPCS: 95810

== ENCOUNTER 2025-01-17 14:13 | Emergency (ER) | payer MEDICARE, SELFPAY ==
--- NOTE | ~2025-01-17 | XR_ITS ---
EXAMINATION: XR shoulder RT min 2V, 01/17/2025 14:55 DIRECTOR PHONE HISTORY: hx fall in summer. Worse after lifting heavy items lately COMPARISON: No comparisons available. Findings: No acute fracture or malalignment. Moderate to severe degenerative changes Soft tissues unremarkable. Impression: No acute fracture or malalignment. Reviewed, dictated and finalized at location P. CTOR PHONE Impression: No acute fracture or malalignment.
[2025-01-17 14:27] VITALS: BP 120/66; PULSE 64; RESP 18; TEMP 36.6; O2SAT 100
--- NOTE | 2025-01-17 14:54 | ED.UPPEXIN ---
HPI - Extremity Injury (Upper) General Chief Complaint: Extremity Injury, Upper Stated Complaint: L Shoulder Time Seen by Provider: 01/17/25 14:46 Source: patient and RN notes reviewed Mode of arrival: ambulatory Limitations: no limitations History of Present Illness HPI narrative: 74-year-old male patient presents today complaining of generalized right shoulder pain that occasionally radiates to the right hand with intermittent numbness and tingling down the right arm. He initially fell a few times last summer injuring the shoulder, wore a sling for a few days until improvement. He has recently been lifting heavy objects which has increased his pain again. He has been taking Aleve and Excedrin without relief and currently rates his pain 5/10. He never had a shoulder evaluated after his initial falls. Related Data Allergies Allergy/AdvReac Type Severity Reaction Status Date / Time amoxicillin AdvReac Intermediate Nausea and Verified 01/17/25 14:27 Vomiting PMFSH Past Medical History Medical History Type 2 diabetes mellitus Mixed hyperlipidemia Hepatitis C antibody test negative (09/13/16) Surgical History Surgical History History of tonsillectomy H/O adenoidectomy Family History Family History Mother Hypertension Family history of elevated blood lipids Cerebrovascular accident Father Family history of Parkinson's disease Malignant neoplasm of prostate, Onset Age: 76 Social History Social History Smoking packs per day: 1 Smoking cigarettes per day: 20.0 Smoking status: Current every day smoker Tobacco type: cigarettes Second hand tobacco smoke exposure: No Alcohol intake: current Drinks per week: 4 Alcohol use details: 2 glasses of wine or 3 beers nightly Substance use: current Substance use type: marijuana Lack of Transportation: No Lack of Food: Never True Current Housing: I Have Housing Concerned About Future Housing: No Difficulty Paying Gas/Electric Bills: No Difficulty Paying for Meds: No Currently Unemployed: No Education: High School Diploma/GED Difficulty w/ Childcare or Family Care: No Living arrangements: with family Gender identity (if verbalized by the patient): Male Spiritual care concerns: No Comments At time of signature, I have reviewed and agree with nursing past medical, surgical, social and family history unless otherwise noted. Please see nursing chart for further information. There is no relevant family history pertinent to the presenting complaint Exam Narrative: GENERAL: Well-appearing, well-nourished, and in no acute distress. HEAD: Normocephalic, atraumatic. EYES: EOMI. No redness or drainage. Conjunctivae normal. ENT: Mucous membranes pink and moist. NECK: Normal AROM. Supple. No lymphadenopathy. No neck tenderness. CHEST: No respiratory distress. MUSCULOSKELETAL: No bony tenderness. Muscular tenderness of the right trapezius. EXTREMITIES: Right shoulder: Bony and muscular tenderness generally about the right shoulder. Muscular tenderness of the right bicep and tricep. Painful passive range of motion at 90? forward flexion and adduction as well as passive internal and external rotation. Distal sensation intact. Capillary refill normal. Radial pulse normal. Hand telephone supervisor strong. SKIN: Warm, dry, no rash. Capillary refill normal. Normal skin turgor. NEURO: No focal deficits. Alert and oriented x3. Gait steady. PSYCH: Normal affect. No signs of depression or anxiety. Course Course Level of Care: Express Care Visit Vital Signs Vital signs: Vital Signs Temperature 97.9 F 01/17/25 14:27 Pulse Rate 64 01/17/25 14:27 Respiratory Rate 18 01/17/25 14:27 Blood Pressure 120/66 01/17/25 14:27 Pulse Oximetry 100 01/17/25 14:27 Oxygen Delivery Room Air 01/17/25 14:27 Temperature 97.9 F 01/17/25 14:27 Pulse Rate 64 01/17/25 14:27 Respiratory Rate 18 01/17/25 14:27 Blood Pressure 120/66 01/17/25 14:27 Pulse Oximetry 100 01/17/25 14:27 Oxygen Delivery Room Air 01/17/25 14:27 Reviewed MDM - Extremity Injury (Upper) MDM Narrative Medical decision making narrative: 74-year-old male patient presents today complaining of generalized right shoulder pain that occasionally radiates to the right hand with intermittent numbness and tingling down the right arm. He initially fell a few times last summer injuring the shoulder, wore a sling for a few days until improvement. He has recently been lifting heavy objects which has increased his pain again. He has been taking Aleve and Excedrin without relief and currently rates his pain 5/10. He never had a shoulder evaluated after his initial falls. Upon exam,Bony and muscular tenderness generally about the right shoulder. Muscular tenderness of the right bicep and tricep. Painful passive range of motion at 90? forward flexion and adduction as well as passive internal and external rotation. Distal sensation intact. Capillary refill normal. Radial pulse normal. Hand telephone supervisor strong. X-rays negative. Recommend PCP or orthopedic follow-up for further evaluation. Patient agrees with plan. Vital signs stable. Anticipatory guidance given. Differential Diagnosis Differential diagnosis: Likely other (Shoulder strain, AC separation, rotator cuff tear, tendinitis) Imaging Data Radiologist's impression: ITS Impressions Shoulder X-Ray 01/17/25 15:02 Impression: No acute fracture or malalignment. Critical Care Time Critical Care Time Critical Care Time: No Discharge Plan Discharge Clinical Impression: Injury of right shoulder Qualifiers: Encounter type: initial encounter Qualified Code(s): S49.91XA - Unspecified injury of right shoulder and upper arm, initial encounter Patient Disposition: Home Condition: Stable Instructions: Shoulder Pain (ED) Additional Instructions: Your shoulder x-ray is negative. Continue the diclofenac as prescribed. Follow-up with your PCP or orthopedics for further evaluation and treatment. Patient Language: Czech Prescriptions: No Action sildenafil 100 mg tablet 100 mg PO DAILY PRN (Reason: sexual activity) Qty: 20 2RF Rx Instructions: administer 30 minutes to 4 hours before activity metoprolol succinate 50 mg tablet extended release 24 hr See Rx Instructions .ROUTE .COMPLEX Qty: 90 1RF Dose Instruction: Take 1/2 (one-half) tablet by mouth once daily Rx Instructions: Take 1/2 (one-half) tablet by mouth once daily diclofenac potassium 50 mg tablet See Rx Instructions .ROUTE .COMPLEX Qty: 180 1RF Dose Instruction: Take 1 tablet by mouth twice daily Rx Instructions: Take 1 tablet by mouth twice daily amlodipine 5 mg tablet 5 mg PO DAILY Qty: 90 1RF atorvastatin 10 mg tablet See Rx Instructions .ROUTE .COMPLEX Qty: 90 1RF Dose Instruction: TAKE 1 TABLET DAILY Rx Instructions: TAKE 1 TABLET DAILY hydrochlorothiazide 25 mg tablet See Rx Instructions .ROUTE .COMPLEX Qty: 90 1RF Dose Instruction: Take 1 tablet by mouth once daily Rx Instructions: Take 1 tablet by mouth once daily lisinopril 40 mg tablet See Rx Instructions .ROUTE .COMPLEX Qty: 90 1RF Dose Instruction: Take 1 tablet by mouth once daily Rx Instructions: Take 1 tablet by mouth once daily escitalopram oxalate 20 mg tablet See Rx Instructions .ROUTE .COMPLEX Qty: 90 1RF Dose Instruction: Take 1 tablet by mouth once daily Rx Instructions: Take 1 tablet by mouth once daily Follow-up/Referrals: Dennis Winkler MD [Physician, Orthopedics] Kika Mandujano DO [Primary Care Provider, Family Practice] Time of Disposition: 15:19
== END 2025-01-17 15:28 | disposition home or self-care (01) ==
PROVIDERS: Emergency Provider Nurse Practitioner; PCP Family Medicine
DX: S49.91XA Unspecified injury of right shoulder and upper arm, initial encounter (principal); X50.0XXA Overexertion from strenuous movement or load, initial encounter; F17.210 Nicotine dependence, cigarettes, uncomplicated; E11.9 Type 2 diabetes mellitus without complications; E78.2 Mixed hyperlipidemia; F12.90 Cannabis use, unspecified, uncomplicated
CPT/HCPCS: 73030; 99213; G0463